=== PATIENT | male | born 1945 | race Caucasian/White ===

== ENCOUNTER → 2016-04-22 | Outpatient (CLI) | payer MEDICARE ==
[~2016-04-22] MED LIST: /AUGM875TA OR; /ONDA4TA SL; ASPI81TA83 OR; ATEN50TA2 OR; COLA100C2 OR; LISI40TA OR; MILKSUS OR; MULTIVIT PO; NITR0.4S SL; PLAV75TA2 OR; VICO5TAB OR; VIT D 2000 PO
[2016-04-22 09:53] LABS: ALBUMIN 3.9 GM/DL (3.2-5.2); ALKALINE PHOSPHATASE 63 U/L (45-117); ALT/SGPT 33 U/L (12-78); ANION GAP 10 MEQ/L (8-16); AST/SGOT 21 U/L (15-37); BILIRUBIN,TOTAL 0.6 MG/DL (0.2-1.0); BLOOD UREA NITROGEN 21 MG/DL (7-18); CALCIUM LEVEL 9.1 MG/DL (8.8-10.2); CARBON DIOXIDE LEVEL 31 MEQ/L (21-32); CHLORIDE LEVEL 100 MEQ/L (98-107); CHOLESTEROL LEVEL 108 MG/DL (<200); CREATININE FOR GFR 1.18 MG/DL (0.70-1.30); GLOMERULAR FILTRATION RATE > 60.0 (>49); GLUCOSE, FASTING 181 MG/DL (80-110); POTASSIUM SERUM 4.2 MEQ/L (3.5-5.1); SODIUM LEVEL 141 MEQ/L (136-145); TOTAL PROTEIN 6.9 GM/DL (6.4-8.2); TRIGLYCERIDES LEVEL 131 MG/DL (<150)
== END ==
LOC: M WUC 08:12
PROVIDERS: ATTEND Emergency Medicine
DX: E11.9 Type 2 diabetes mellitus without complications (principal); I10 Essential (primary) hypertension; E78.2 Mixed hyperlipidemia

== ENCOUNTER → 2016-11-06 | Outpatient (CLI) | payer MEDICARE ==
[2016-11-06 09:50] LABS: ALBUMIN/GLOBULIN RATIO 1.29 (1.00-1.93); ALKALINE PHOSPHATASE 65 U/L (45-117); ALT/SGPT 39 U/L (12-78); ANION GAP 11 MEQ/L (8-16); AST/SGOT 19 U/L (15-37); BILIRUBIN,TOTAL 0.6 MG/DL (0.2-1.0); BLOOD UREA NITROGEN 16 MG/DL (7-18); CARBON DIOXIDE LEVEL 28 MEQ/L (21-32); CHLORIDE LEVEL 102 MEQ/L (98-107); CHOLESTEROL LEVEL 179 MG/DL (<200); CREATININE FOR GFR 0.88 MG/DL (0.70-1.30); GLOMERULAR FILTRATION RATE > 60.0 (>49); GLUCOSE, FASTING 207 MG/DL (80-110); POTASSIUM SERUM 3.9 MEQ/L (3.5-5.1); SODIUM LEVEL 141 MEQ/L (136-145); TOTAL PROTEIN 7.1 GM/DL (6.4-8.2); TRIGLYCERIDES LEVEL 198 MG/DL (<150)
== END ==
LOC: M WUC 08:02
PROVIDERS: ATTEND Emergency Medicine
DX: E11.9 Type 2 diabetes mellitus without complications (principal); I10 Essential (primary) hypertension; E78.2 Mixed hyperlipidemia

== ENCOUNTER → 2017-07-07 | Outpatient (CLI) | payer MEDICARE ==
[2017-07-07 12:58] LABS: ESTIMATED AVERAGE GLUCOSE 183 MG/DL (60-110)
[2017-07-07 13:01] LABS: ALBUMIN 3.8 GM/DL (3.2-5.2); ALBUMIN/GLOBULIN RATIO 1.23 (1.00-1.93); ALKALINE PHOSPHATASE 61 U/L (45-117); ALT/SGPT 32 U/L (12-78); ANION GAP 5 MEQ/L (8-16); AST/SGOT 17 U/L (7-37); BILIRUBIN,TOTAL 0.6 MG/DL (0.2-1.0); BLOOD UREA NITROGEN 17 MG/DL (7-18); CALCIUM LEVEL 8.7 MG/DL (8.8-10.2); CARBON DIOXIDE LEVEL 30 MEQ/L (21-32); CHLORIDE LEVEL 106 MEQ/L (98-107); CHOLESTEROL LEVEL 119 MG/DL (<200); CHOLESTEROL RISK RATIO 2.586 (<5); CREATININE FOR GFR 0.99 MG/DL (0.70-1.30); GLOMERULAR FILTRATION RATE > 60.0 (>49); GLUCOSE, FASTING 169 MG/DL (70-100); HDL CHOLESTEROL 46 MG/DL (>40); LDL CHOLESTEROL 47.8 MG/DL (<100); NON-HDL-C 73 MG/DL; SODIUM LEVEL 141 MEQ/L (136-145); TOTAL PROTEIN 6.9 GM/DL (6.4-8.2); TRIGLYCERIDES LEVEL 126 MG/DL (<150)
[2017-07-07 13:11] LABS: MALB URINE SIEMENS 20.5 MG/L; MAU/CREAT RATIO 8.1 MCG/MG (0.0-30.0)
== END ==
LOC: M WUC 08:27
DX: E11.9 Type 2 diabetes mellitus without complications (principal); I10 Essential (primary) hypertension; E78.2 Mixed hyperlipidemia
CPT/HCPCS: 80053

== ENCOUNTER → 2017-11-01 | Outpatient (CLI) | payer MEDICARE ==
[2017-11-01 09:42] LABS: ALBUMIN 4.1 GM/DL (3.2-5.2); ALBUMIN/GLOBULIN RATIO 1.46 (1.00-1.93); ALKALINE PHOSPHATASE 55 U/L (45-117); ALT/SGPT 25 U/L (12-78); ANION GAP 11 MEQ/L (8-16); AST/SGOT 14 U/L (7-37); BILIRUBIN,TOTAL 0.5 MG/DL (0.2-1.0); BLOOD UREA NITROGEN 18 MG/DL (7-18); CARBON DIOXIDE LEVEL 27 MEQ/L (21-32); CHLORIDE LEVEL 107 MEQ/L (98-107); CHOLESTEROL LEVEL 114 MG/DL (<200); CHOLESTEROL RISK RATIO 2.192 (<5); CREATININE FOR GFR 0.89 MG/DL (0.70-1.30); ESTIMATED AVERAGE GLUCOSE 160 MG/DL (60-110); GLOMERULAR FILTRATION RATE > 60.0 (>42); GLUCOSE, FASTING 140 MG/DL (70-100); HDL CHOLESTEROL 52 MG/DL (>40); HEMOGLOBIN A1c 7.2 %; LDL CHOLESTEROL 42 MG/DL (<100); NON-HDL-C 62 MG/DL; POTASSIUM SERUM 3.8 MEQ/L (3.5-5.1); SODIUM LEVEL 145 MEQ/L (136-145); TOTAL PROTEIN 6.9 GM/DL (6.4-8.2); TRIGLYCERIDES LEVEL 98 MG/DL (<150)
== END ==
LOC: M WUC 08:09
DX: E78.2 Mixed hyperlipidemia (principal); E11.65 Type 2 diabetes mellitus with hyperglycemia
CPT/HCPCS: 80053

== ENCOUNTER → 2018-05-12 | Outpatient (CLI) | payer MEDICARE ==
[2018-05-12 09:51] LABS: HEMOGLOBIN A1c 8.6 %
[2018-05-12 09:59] LABS: BLOOD UREA NITROGEN 17 MG/DL (7-18); CALCIUM LEVEL 9.4 MG/DL (8.8-10.2); CARBON DIOXIDE LEVEL 31 MEQ/L (21-32); CHLORIDE LEVEL 101 MEQ/L (98-107); CREATININE FOR GFR 0.92 MG/DL (0.70-1.30); GLOMERULAR FILTRATION RATE > 60.0 (>42); GLUCOSE, FASTING 215 MG/DL (70-100); POTASSIUM SERUM 4.2 MEQ/L (3.5-5.1); SODIUM LEVEL 139 MEQ/L (136-145)
[2018-05-12 10:14] LABS: MALB URINE SIEMENS 56.1 MG/L; MAU/CREAT RATIO 19.8 MCG/MG (0.0-30.0)
== END ==
LOC: M WUC 08:11
PROVIDERS: ATTEND Physician Assistant Medical
DX: E11.65 Type 2 diabetes mellitus with hyperglycemia (principal); I10 Essential (primary) hypertension; E78.2 Mixed hyperlipidemia

== ENCOUNTER → 2018-09-20 | Outpatient (CLI) | payer MEDICARE ==
[~2018-09-20] MED LIST changes: -/ONDA4TA SL; +AMLO10TA5; +ATOR1TAB21; +GINK1CAP PO; +GLIM2TAB29; +LISI20TA19; +MELA5CAP2 PO; +METF10004; +METO1TAB7; +NAPR-885; +ONDA-1 SL
[2018-09-20 09:41] LABS: ALBUMIN 3.7 GM/DL (3.2-5.2); ALT/SGPT 31 U/L (12-78); BILIRUBIN,TOTAL 0.4 MG/DL (0.2-1.0); BLOOD UREA NITROGEN 12 MG/DL (7-18); CALCIUM LEVEL 8.8 MG/DL (8.8-10.2); CARBON DIOXIDE LEVEL 29 MEQ/L (21-32); CHLORIDE LEVEL 105 MEQ/L (98-107); CHOLESTEROL LEVEL 169 MG/DL (<200); CREATININE FOR GFR 0.97 MG/DL (0.70-1.30); GLOMERULAR FILTRATION RATE > 60.0 (>42); GLUCOSE, FASTING 160 MG/DL (70-100); HDL CHOLESTEROL 44 MG/DL (>40); LDL CHOLESTEROL 102 MG/DL (<100); NON-HDL-C 125 MG/DL; POTASSIUM SERUM 3.9 MEQ/L (3.5-5.1); SODIUM LEVEL 140 MEQ/L (136-145); TOTAL PROTEIN 6.6 GM/DL (6.4-8.2); TRIGLYCERIDES LEVEL 117 MG/DL (<150)
[2018-09-20 09:57] LABS: HEMOGLOBIN A1c 9.2 %
== END ==
LOC: M WUC 08:08
PROVIDERS: ATTEND Physician Assistant Medical
DX: E11.65 Type 2 diabetes mellitus with hyperglycemia (principal)

== ENCOUNTER → 2018-12-21 | Outpatient (CLI) | payer MEDICARE ==
[~2018-12-21] MED LIST changes: -AMLO10TA5; -ATOR1TAB21; -GINK1CAP PO; -GLIM2TAB29; -LISI20TA19; -MELA5CAP2 PO; -METF10004; -METO1TAB7; -NAPR-885
[2018-12-21 12:58] LABS: BLOOD UREA NITROGEN 18 MG/DL (7-18); CALCIUM LEVEL 9.3 MG/DL (8.8-10.2); CARBON DIOXIDE LEVEL 27 MEQ/L (21-32); CHLORIDE LEVEL 105 MEQ/L (98-107); CREATININE FOR GFR 1.04 MG/DL (0.70-1.30); GLOMERULAR FILTRATION RATE > 60.0 (>42); GLUCOSE, FASTING 178 MG/DL (70-100); POTASSIUM SERUM 4.4 MEQ/L (3.5-5.1); SODIUM LEVEL 138 MEQ/L (136-145)
[2018-12-21 13:20] LABS: MALB URINE SIEMENS 28.2 MG/L; MAU/CREAT RATIO 11.1 MCG/MG (0.0-30.0)
[2018-12-21 13:38] LABS: HEMOGLOBIN A1c 7.5 %
== END ==
LOC: M WUC 08:37
PROVIDERS: ATTEND Physician Assistant Medical
DX: E11.65 Type 2 diabetes mellitus with hyperglycemia (principal)

== ENCOUNTER 2019-02-27 17:31 | Emergency (ER) | payer MEDICARE ==
[~2019-02-27] VITALS: Ht 170.2 cm; Wt 109.6 kg
[2019-02-27] MEDS ORDERED: ATOR1TAB21 (19:09)
[2019-02-27] MEDS ORDERED: GINK1CAP PO (19:09)
[2019-02-27] MEDS ORDERED: GLIM2TAB29 (19:09)
[2019-02-27] MEDS ORDERED: MELA5CAP2 PO (19:09)
[2019-02-27] MEDS ORDERED: LISI20TA19 (19:09)
[2019-02-27] MEDS ORDERED: NAPR-885 (19:09)
[2019-02-27] MEDS ORDERED: METO1TAB7 (19:09)
[2019-02-27] MEDS ORDERED: AMLO10TA5 (19:09)
[2019-02-27] MEDS ORDERED: METF10004 (19:09)
[2019-02-27 19:38] LABS: BASO % 0.1 % (0.0-1.0); HEMATOCRIT 45.5 % (42.0-52.0); HEMOGLOBIN 15.5 g/dl (13.5-17.5); LYMPH # 0.7 10^3/uL (1.5-5.0); LYMPH % 8.6 % (24.0-44.0); MEAN CORPUSCULAR HEMOGLOBIN 29.9 pg (27.0-33.0); MEAN CORPUSCULAR HGB CONC 34.1 g/dl (32.0-36.5); MEAN CORPUSCULAR VOLUME 87.7 fl (80.0-96.0); MONO # 0.1 10^3/uL (0.0-0.8); MONO % 1.1 % (0.0-5.0); NEUTROPHILS # 7.7 10^3/uL (1.5-8.5); NEUTROPHILS % 89.8 % (36.0-66.0); PLATELET COUNT, AUTOMATED 278 10^3/uL (150-450); RED BLOOD COUNT 5.19 10^6/uL (4.30-6.10); WHITE BLOOD COUNT 8.6 10^3/uL (4.0-10.0)
[2019-02-27 19:42] LABS: APPEARANCE, URINE CLEAR (CLEAR); BACTERIA, URINE AUTO NEGATIVE (NEGATIVE); BILIRUBIN, URINE AUTO NEGATIVE (NEGATIVE); BLOOD, URINE BLOOD NEGATIVE (NEGATIVE); COLOR, URINE YELLOW (YELLOW); GLUCOSE, URINE (UA) AUTO 3+ mg/dL (NEGATIVE); KETONE, URINE AUTO TRACE mg/dL (NEGATIVE); LEUKOCYTE ESTERASE, URINE AUTO NEGATIVE (NEGATIVE); MUCUS, URINE SMALL (NEGATIVE); NITRITE, URINE AUTO NEGATIVE (NEGATIVE); PROTEIN, URINE AUTO NEGATIVE (NEGATIVE); RBC, URINE AUTO 2 /HPF (0-3); SPECIFIC GRAVITY URINE AUTO 1.027 (1.002-1.035); SQUAMOUS EPITHELIAL CELL UR AU 0 /HPF (0-6); UROBILINOGEN, URINE AUTO 0.2 mg/dL (0.0-2.0); WBC, URINE AUTO 0 /HPF (0-3)
--- NOTE | 2019-02-27 19:50 | REPVR ---
PROCEDURE INFORMATION: Exam: CT Head Without Contrast Exam date and time: 02/27/2019 7:07 PM Age: 73 years old Clinical indication: Altered mental status/memory loss; Additional info: Confusion, seeing people that are not there TECHNIQUE: Imaging protocol: Computed tomography of the head without contrast. Radiation optimization: All CT scans at this facility use at least one of these dose optimization techniques: automated exposure control; mA and/or kV adjustment per patient size (includes targeted exams where dose is matched to clinical indication); or iterative reconstruction. COMPARISON: No relevant prior studies available. FINDINGS: Brain: Decreased attenuation of the supratentorial white matter is likely secondary to chronic microvascular ischemia. No acute intracranial hemorrhage. Ventricles: Ventricular and subarachnoid spaces are age appropriate. Bones/joints: Unremarkable. No acute fracture. Sinuses: Visualized sinuses are unremarkable. No fluid levels. Mastoid air cells: Visualized mastoid air cells are well aerated. Soft tissues: Unremarkable. Vasculature: Intracranial vascular calcification. IMPRESSION: No acute intracranial abnormality. Electronically signed by: Shashank Handley On 02/27/2019 19:49:47 PM
[2019-02-27 20:07] LABS: ALBUMIN 4.5 GM/DL (3.2-5.2); ALT/SGPT 31 U/L (12-78); BILIRUBIN,TOTAL 0.5 MG/DL (0.2-1.0); BLOOD UREA NITROGEN 20 MG/DL (7-18); CARBON DIOXIDE LEVEL 27 MEQ/L (21-32); CHLORIDE LEVEL 101 MEQ/L (98-107); CREATININE FOR GFR 1.26 MG/DL (0.70-1.30); GLOMERULAR FILTRATION RATE > 60.0 (>42); GLUCOSE, FASTING 270 MG/DL (70-100); POTASSIUM SERUM 3.8 MEQ/L (3.5-5.1); SODIUM LEVEL 138 MEQ/L (136-145); TOTAL PROTEIN 8.2 GM/DL (6.4-8.2)
[2019-02-27 20:16] VITALS: BP 167/77
== END 2019-02-27 20:37 | disposition home or self-care (01) ==
LOC: M ED 17:31
DX: R44.3 Hallucinations, unspecified (principal); R41.0 Disorientation, unspecified; E11.9 Type 2 diabetes mellitus without complications; I10 Essential (primary) hypertension; G47.30 Sleep apnea, unspecified; Z91.041 Radiographic dye allergy status; Z79.1 Long term (current) use of non-steroidal anti-inflammatories (NSAID); Z79.82 Long term (current) use of aspirin; Z79.84 Long term (current) use of oral hypoglycemic drugs; Z79.899 Other long term (current) drug therapy

== ENCOUNTER → 2019-07-30 | Outpatient (CLI) | payer MEDICARE ==
[~2019-07-30] MED LIST changes: +AMLO10TA5; +ATOR1TAB21; +GINK1CAP PO; +GLIM2TAB29; +LISI20TA19; +MELA5CAP2 PO; +METF10004; +METO1TAB7; +NAPR-885
[2019-07-31 10:51] LABS: HEMOGLOBIN A1c 8.8 %
[2019-07-31 10:53] LABS: ALBUMIN 3.8 GM/DL (3.2-5.2); ALT/SGPT 36 U/L (12-78); BILIRUBIN,TOTAL 0.6 MG/DL (0.2-1.0); BLOOD UREA NITROGEN 16 MG/DL (7-18); CALCIUM LEVEL 9.5 MG/DL (8.8-10.2); CARBON DIOXIDE LEVEL 30 MEQ/L (21-32); CHLORIDE LEVEL 105 MEQ/L (98-107); CHOLESTEROL LEVEL 135 MG/DL (<200); CHOLESTEROL RISK RATIO 3.552 (<5); CREATININE FOR GFR 1.02 MG/DL (0.70-1.30); GLOMERULAR FILTRATION RATE > 60.0 (>42); GLUCOSE, FASTING 166 MG/DL (70-100); HDL CHOLESTEROL 38 MG/DL (>40); LDL CHOLESTEROL 59 MG/DL (<100); NON-HDL-C 97 MG/DL; POTASSIUM SERUM 4.4 MEQ/L (3.5-5.1); SODIUM LEVEL 143 MEQ/L (136-145); TOTAL PROTEIN 6.6 GM/DL (6.4-8.2); TRIGLYCERIDES LEVEL 189 MG/DL (<150)
== END ==
LOC: M WUC 08:18
PROVIDERS: ATTEND Physician Assistant
DX: E11.65 Type 2 diabetes mellitus with hyperglycemia (principal); E78.2 Mixed hyperlipidemia

== ENCOUNTER → 2019-10-29 | Outpatient (CLI) | payer MEDICARE ==
[~2019-10-29] MED LIST changes: -AMLO10TA5; +AMLO1TAB25; -LISI20TA19; +LISI20TA35
[2019-10-29 18:22] LABS: ALBUMIN 3.7 GM/DL (3.2-5.2); ALT/SGPT 27 U/L (12-78); BILIRUBIN,TOTAL 0.6 MG/DL (0.2-1.0); BLOOD UREA NITROGEN 13 MG/DL (7-18); CARBON DIOXIDE LEVEL 30 MEQ/L (21-32); CHLORIDE LEVEL 105 MEQ/L (98-107); CREATININE FOR GFR 0.98 MG/DL (0.70-1.30); GLOMERULAR FILTRATION RATE > 60.0 (>42); GLUCOSE, FASTING 141 MG/DL (70-100); POTASSIUM SERUM 3.8 MEQ/L (3.5-5.1); SODIUM LEVEL 141 MEQ/L (136-145); TOTAL PROTEIN 6.9 GM/DL (6.4-8.2)
[2019-10-29 18:34] LABS: HEMOGLOBIN A1c 7.1 %
[2019-10-29 18:56] LABS: MALB URINE SIEMENS 32.6 MG/L; MAU/CREAT RATIO 12.1 MCG/MG (0.0-30.0)
== END ==
LOC: M WUC 08:04
PROVIDERS: ATTEND Physician Assistant
DX: E11.65 Type 2 diabetes mellitus with hyperglycemia (principal)

== ENCOUNTER → 2020-02-26 | Outpatient (REF) | payer MEDICARE ==
[2020-02-26 15:48] LABS: HEMOGLOBIN A1c 6.9 %
== END ==
LOC: M WUC 15:05
PROVIDERS: ATTEND Physician Assistant Medical
DX: E11.65 Type 2 diabetes mellitus with hyperglycemia (principal)

== ENCOUNTER → 2022-03-03 | Outpatient (CLI) | payer MEDICARE ==
[2022-03-03 19:16] LABS: HEMOGLOBIN A1c 7.2 % (4.0-6.0)
== END ==
LOC: M WUC 11:42
PROVIDERS: ATTEND Nurse Practitioner Family
DX: E11.65 Type 2 diabetes mellitus with hyperglycemia (principal); Z79.84 Long term (current) use of oral hypoglycemic drugs

== ENCOUNTER 2023-02-19 10:57 | Inpatient (IN) | payer MEDICARE, MEDICAID ==
[~2023-02-19] VITALS: Ht 175.3 cm; Wt 86.6 kg
[~2023-02-19 10:57] MED LIST changes: -AMLO1TAB25; +AMLO1TAB25 PO; -LISI20TA35; +LISI20TA35 PO; -METF10004; +METF10004 PO; -METO1TAB7; +METO1TAB7 PO
[2023-02-19 14:41] LABS: VENOUS BASE EXCESS 2.2 (-2.0-2.0); VENOUS HCO3 26.6 MMOL/L (23.0-27.0); VENOUS O2 SATURATION 89.4 % (60.0-80.0); VENOUS PARTIAL PRESSURE CO2 40.5 mmHg (38.0-50.0); VENOUS PH 7.435 UNITS (7.330-7.430); VENOUS STANDARD HCO3 26.2 MMOL/L; VENOUS TOTAL CO2 27.8 MMOL/L (24.0-28.0)
[2023-02-19 14:50] LABS: BASO # 0.1 10^3/uL (0.0-0.2); BASO % 0.7 % (0.0-1.0); EOS # 0.1 10^3/uL (0.0-0.5); EOS % 0.9 % (0.0-3.0); HEMATOCRIT 41.3 % (42.0-52.0); HEMOGLOBIN 14.2 g/dl (13.5-17.5); LYMPH # 1.1 10^3/uL (1.5-5.0); LYMPH % 12.9 % (24.0-44.0); MEAN CORPUSCULAR HEMOGLOBIN 30.1 pg (27.0-33.0); MEAN CORPUSCULAR HGB CONC 34.4 g/dl (32.0-36.5); MEAN CORPUSCULAR VOLUME 87.7 fl (80.0-96.0); MONO # 0.8 10^3/uL (0.0-0.8); MONO % 9.5 % (2.0-8.0); NEUTROPHILS # 6.4 10^3/uL (1.5-8.5); NEUTROPHILS % 75.8 % (36.0-66.0); PLATELET COUNT, AUTOMATED 268 10^3/uL (150-450); RED BLOOD COUNT 4.71 10^6/uL (4.30-6.10); WHITE BLOOD COUNT 8.5 10^3/uL (4.0-10.0)
[2023-02-19 15:15] LABS: ALBUMIN 3.7 G/DL (3.2-5.2); ALKALINE PHOSPHATASE 79 U/L (46-116); ALT/SGPT 17 U/L (7.0-40); AST/SGOT 27 U/L (<34); BILIRUBIN,DIRECT 0.2 MG/DL (<0.4); BILIRUBIN,TOTAL 0.8 MG/DL (0.3-1.2); BLOOD UREA NITROGEN 18 MG/DL (9-23); CALCIUM LEVEL 9.2 MG/DL (8.3-10.6); CARBON DIOXIDE LEVEL 30 MMOL/L (20-31); CHLORIDE LEVEL 107 MMOL/L (98-107); CREATININE FOR GFR 0.72 MG/DL (0.70-1.30); GLOMERULAR FILTRATION RATE > 60.0 (>42); GLUCOSE, FASTING 121 MG/DL (74-106); SODIUM LEVEL 144 MMOL/L (136-145); TOTAL PROTEIN 6.4 G/DL (5.7-8.2)
[2023-02-19 15:18] LABS: THYROID STIMULATING HORMONE 2.485 uIU/ML (0.55-4.78)
[2023-02-19 15:27] LABS: OSMOLALITY SERUM 300 MOSM/KG (280-301)
[2023-02-19] MEDS ORDERED: GLUCAGON INJ 1MG VIAL SC PRN (17:25)
[2023-02-19] MEDS ORDERED: DEXTROSE 50% 50ML SYRINGE IV PRN (17:25)
[2023-02-19] MEDS ORDERED: GLUCOSE 4GM CHEW TABLET PO PRN (17:25)
[2023-02-19] MEDS: INSULIN LISPRO (NovoLOG) PER UNIT SC SCH ×2 (17:30→20:33)
[2023-02-19] MEDS ORDERED: MED REC IN PROGRESS XX SCH (18:05)
[2023-02-19] MEDS: BOOSTRIX VACCINE (TETANUS/DIPHTH/ACEL. PERTUSSIS) 0.5ML SYR IM.IMMUN ONE ×2 (18:18→18:19)
[2023-02-19] MEDS: LR 1,000 ML IV SCH (18:30)
[2023-02-19 18:49] LABS: PROCALCITONIN <0.04 ng/ml
[2023-02-19] MEDS ORDERED: QUET50TA4 PO (18:58)
[2023-02-19] MEDS ORDERED: SERT25TA21 PO (18:58)
[2023-02-19] MEDS ORDERED: RIVA1CAP3 PO (18:58)
[2023-02-19] MEDS ORDERED: HOME MED LIST COMPLETE! XX SCH (19:00)
[2023-02-19 20:06] VITALS: BP 149/88; TEMP 97.2; O2SAT 95
[2023-02-19] MEDS: OLANZapine INTRAMUSCULAR 10MG VIAL IM SCH (21:34)
[2023-02-20 05:54] LABS: HEMATOCRIT 38.8 % (42.0-52.0); HEMOGLOBIN 13.6 g/dl (13.5-17.5); MEAN CORPUSCULAR HEMOGLOBIN 30.6 pg (27.0-33.0); MEAN CORPUSCULAR HGB CONC 35.1 g/dl (32.0-36.5); MEAN CORPUSCULAR VOLUME 87.2 fl (80.0-96.0); PLATELET COUNT, AUTOMATED 263 10^3/uL (150-450); RED BLOOD COUNT 4.45 10^6/uL (4.30-6.10); WHITE BLOOD COUNT 8.1 10^3/uL (4.0-10.0)
[2023-02-20 06:00] VITALS: BP 132/89; TEMP 98.2; O2SAT 90
[2023-02-20 06:25] LABS: BLOOD UREA NITROGEN 18 MG/DL (9-23); CALCIUM LEVEL 9.1 MG/DL (8.3-10.6); CARBON DIOXIDE LEVEL 30 MMOL/L (20-31); CHLORIDE LEVEL 108 MMOL/L (98-107); CREATININE FOR GFR 0.77 MG/DL (0.70-1.30); GLOMERULAR FILTRATION RATE > 60.0 (>42); GLUCOSE, FASTING 122 MG/DL (74-106); POTASSIUM SERUM 3.8 MMOL/L (3.5-5.1); SODIUM LEVEL 143 MMOL/L (136-145)
[2023-02-20] MEDS ORDERED: PILL CUTTER 1 EACH XX PRN (09:50)
[2023-02-20] MEDS: INSULIN LISPRO (NovoLOG) PER UNIT SC SCH ×4 (10:12→21:00)
[2023-02-20] MEDS: OLANZapine INTRAMUSCULAR 10MG VIAL IM SCH ×2 (11:09→22:02)
[2023-02-20] MEDS: ENOXAPARIN 40MG/0.4ML SYRINGE (J1650 PER 10MG) SC SCH (11:10)
[2023-02-20] MEDS: METOPROLOL SUCC (TopROL XL) 50MG **XL** TAB PO SCH (11:10)
[2023-02-20] MEDS: LR 1,000 ML IV SCH (11:10)
[2023-02-20] MEDS: SERTRALINE HCL 25 MG TABLET PO SCH (11:11)
[2023-02-20 14:00] VITALS: BP 117/80; TEMP 98.1; O2SAT 96
[2023-02-20] MEDS ORDERED: LORazepam 0.5 MG TAB PO PRN (14:05)
[2023-02-20] MEDS ORDERED: LORazepam 2 MG/ML 1ML VIAL IV ONE (14:45)
[2023-02-20] MEDS ORDERED: QUEtiapine FUMARATE 50MG TAB PO SCH (21:00)
[2023-02-20] MEDS: LORazepam 2 MG/ML 1ML VIAL IV SCH (21:00)
[2023-02-20] MEDS ORDERED: LORazepam 2 MG/ML 1ML VIAL IM SCH (21:00)
[2023-02-20 22:00] VITALS: BP 152/84; TEMP 98.1; O2SAT 95
[2023-02-21] MEDS: LR 1,000 ML IV SCH ×2 (00:31→12:42)
[2023-02-21 06:00] VITALS: BP 166/83; TEMP 98.6; O2SAT 95
[2023-02-21] MEDS: INSULIN LISPRO (NovoLOG) PER UNIT SC SCH ×4 (07:30→21:00)
[2023-02-21] MEDS: OLANZapine INTRAMUSCULAR 10MG VIAL IM SCH ×2 (09:00→21:00)
[2023-02-21] MEDS: ENOXAPARIN 40MG/0.4ML SYRINGE (J1650 PER 10MG) SC SCH (09:25)
[2023-02-21] MEDS: SERTRALINE HCL 25 MG TABLET PO SCH (09:25)
[2023-02-21] MEDS: METOPROLOL SUCC (TopROL XL) 50MG **XL** TAB PO SCH (09:25)
[2023-02-21 14:00] VITALS: BP 128/72; TEMP 98.1; O2SAT 95
[2023-02-21 20:00] VITALS: BP 154/97; TEMP 98.1; O2SAT 95
[2023-02-21] MEDS: LORazepam 2 MG/ML 1ML VIAL IV SCH (21:00)
[2023-02-22] MEDS: LR 1,000 ML IV SCH ×2 (02:11→13:10)
[2023-02-22 06:00] VITALS: BP 186/100; TEMP 98.1; O2SAT 95
[2023-02-22 06:18] LABS: HEMATOCRIT 38.1 % (42.0-52.0); HEMOGLOBIN 13.2 g/dl (13.5-17.5); MEAN CORPUSCULAR HEMOGLOBIN 30.5 pg (27.0-33.0); MEAN CORPUSCULAR HGB CONC 34.6 g/dl (32.0-36.5); PLATELET COUNT, AUTOMATED 260 10^3/uL (150-450); RED BLOOD COUNT 4.33 10^6/uL (4.30-6.10); WHITE BLOOD COUNT 7.5 10^3/uL (4.0-10.0)
[2023-02-22] MEDS: INSULIN LISPRO (NovoLOG) PER UNIT SC SCH ×4 (07:30→20:59)
[2023-02-22 08:04] VITALS: BP 177/98
[2023-02-22] MEDS: ENOXAPARIN 40MG/0.4ML SYRINGE (J1650 PER 10MG) SC SCH (08:04)
[2023-02-22] MEDS: METOPROLOL SUCC (TopROL XL) 50MG **XL** TAB PO SCH (08:04)
[2023-02-22] MEDS ORDERED: ACETAMINOPHEN TAB 650MG DOSE (2X325MG) PO PRN (08:40)
[2023-02-22] MEDS: OLANZapine INTRAMUSCULAR 10MG VIAL IM SCH (09:00)
[2023-02-22] MEDS: SERTRALINE HCL 25 MG TABLET PO SCH (09:04)
[2023-02-22 11:45] VITALS: BP 144/75
[2023-02-22] MEDS ORDERED: OLANZapine INTRAMUSCULAR 10MG VIAL IM PRN (12:00)
[2023-02-22 14:00] VITALS: BP 141/75; TEMP 97.7; O2SAT 97
[2023-02-22 20:00] VITALS: BP 156/103; TEMP 98.1; O2SAT 91
[2023-02-22] MEDS ORDERED: MOM 30ML SUSPENSION UDC PO PRN (20:20)
[2023-02-22] MEDS: RIVASTIGMINE 3 MG XX SCH (20:58)
[2023-02-22] MEDS: DOCUSATE SODIUM 100MG CAPSULE PO SCH (20:58)
[2023-02-22] MEDS: LORazepam 2 MG/ML 1ML VIAL IV SCH (20:59)
[2023-02-22] MEDS ORDERED: BISACODYL 10MG SUPP PR PRN (21:55)
[2023-02-22] MEDS ORDERED: BISACODYL 10MG SUPP PR ONE (23:00)
[2023-02-23] MEDS: LR 1,000 ML IV SCH ×2 (01:50→15:17)
[2023-02-23 06:00] VITALS: BP 158/88; TEMP 97.9; O2SAT 90
[2023-02-23] MEDS ORDERED: METOPROLOL TART 25 MG TABLET PO SCH (09:00)
[2023-02-23] MEDS ORDERED: BISACODYL 10MG SUPP PR PRN (09:00)
[2023-02-23] MEDS: INSULIN LISPRO (NovoLOG) PER UNIT SC SCH ×2 (09:13→12:00)
[2023-02-23] MEDS: ENOXAPARIN 40MG/0.4ML SYRINGE (J1650 PER 10MG) SC SCH (09:13)
[2023-02-23] MEDS: SERTRALINE HCL 25 MG TABLET PO SCH (09:14)
[2023-02-23] MEDS: DOCUSATE SODIUM 100MG CAPSULE PO SCH ×2 (09:14→21:00)
[2023-02-23] MEDS: RIVASTIGMINE 3 MG XX SCH (09:14)
[2023-02-23 14:00] VITALS: BP 142/74; TEMP 98.1; O2SAT 98
[2023-02-23] MEDS ORDERED: MORPHINE 2 MG/ML 1ML VIAL IV PRN (15:55)
[2023-02-23] MEDS ORDERED: ONDANSETRON 4MG ORAL DISINTEGRATING TAB PO PRN (15:55)
[2023-02-23] MEDS ORDERED: ACETAMINOPHEN 650MG SUPP PR PRN (15:55)
[2023-02-23] MEDS ORDERED: ONDANSETRON 4MG 2ML VIAL IV PRN (15:55)
[2023-02-23] MEDS ORDERED: ACETAMINOPHEN TAB 650MG DOSE (2X325MG) PO PRN (15:55)
[2023-02-23] MEDS ORDERED: HYOSCYAMINE SULFATE 0.125 MG SUBL TABLET PO PRN (15:55)
[2023-02-23] MEDS ORDERED: ATROPINE SULFATE 1% OPHTH SOLN 2ML BTL SL PRN (15:55)
[2023-02-23] MEDS ORDERED: LORazepam 2 MG/ML 1ML VIAL IV PRN (15:55)
[2023-02-23] MEDS ORDERED: SCOPOLAMINE 1MG TRANSDERMAL PATCH TOP PRN (15:55)
[2023-02-23] MEDS ORDERED: ERYTHROMYCIN OPHTH OINT OD SCH (17:00)
[2023-02-23] MEDS: MORPHINE 10MG/0.5ML ORAL CONCENTRATE SOLUTION U/D SL PRN (23:43)
[2023-02-23] MEDS: LORazepam 1 MG TAB PO PRN (23:44)
[2023-02-24] MEDS: DOCUSATE SODIUM 100MG CAPSULE PO SCH ×2 (07:35→21:00)
[2023-02-24] MEDS: ERYTHROMYCIN OPHTH OINT OD SCH ×4 (08:55→21:00)
[2023-02-24] MEDS ORDERED: ERYTHROMYCIN 2 % GEL 30GM TOP SCH (09:00)
[2023-02-24] MEDS: LORazepam 1 MG TAB PO PRN (20:58)
[2023-02-24] MEDS: MORPHINE 10MG/0.5ML ORAL CONCENTRATE SOLUTION U/D SL PRN (20:59)
[2023-02-25] MEDS: ERYTHROMYCIN OPHTH OINT OD SCH ×6 (01:58→20:30)
[2023-02-25] MEDS: DOCUSATE SODIUM 100MG CAPSULE PO SCH ×2 (07:28→20:30)
[2023-02-25] MEDS: LORazepam 1 MG TAB PO PRN (18:52)
[2023-02-25] MEDS: MORPHINE 10MG/0.5ML ORAL CONCENTRATE SOLUTION U/D SL PRN (18:53)
[2023-02-26] MEDS: ERYTHROMYCIN OPHTH OINT OD SCH ×6 (00:34→21:05)
[2023-02-26] MEDS: DOCUSATE SOD LIQ 100MG/10ML UDC PO SCH ×2 (09:00→21:05)
[2023-02-27] MEDS: ERYTHROMYCIN OPHTH OINT OD SCH ×6 (01:32→20:23)
[2023-02-27] MEDS: DOCUSATE SOD LIQ 100MG/10ML UDC PO SCH ×2 (09:00→20:22)
[2023-02-27] MEDS ORDERED: SALIVA SUBSTITUTE(MOUTHKOTE) BTL MT PRN (18:15)
[2023-02-27] MEDS: LORazepam 1 MG TAB PO PRN (18:36)
[2023-02-28] MEDS: ERYTHROMYCIN OPHTH OINT OD SCH ×6 (00:50→20:45)
[2023-02-28] MEDS: DOCUSATE SOD LIQ 100MG/10ML UDC PO SCH ×2 (09:00→20:45)
[2023-02-28] MEDS ORDERED: ATIV1TAB10 PO (12:42)
[2023-02-28] MEDS ORDERED: HYOS125TA PO (12:42)
[2023-02-28] MEDS ORDERED: MORP1SOL5 PO (12:42)
[2023-03-01] MEDS: ERYTHROMYCIN OPHTH OINT OD SCH ×3 (01:11→08:17)
[2023-03-01] MEDS: DOCUSATE SOD LIQ 100MG/10ML UDC PO SCH (08:35)
== END 2023-03-01 11:15 | disposition hospice, inpatient (51) | DRG 57 ==
LOC: M ED 10:57 → EDBD 10:57 → M ED INP 10:58 → OBSVTOIN 18:11 → M MSPAV 20:10
PROVIDERS: ADMIT Internal Medicine; ATTEND Internal Medicine
DX: G31.83 Neurocognitive disorder with Lewy bodies (principal); G93.40 Encephalopathy, unspecified; F02.80 Dementia in other diseases classified elsewhere, unspecified severity, without behavioral disturbance, psychotic disturbance, mood disturbance, and anxiety; E11.9 Type 2 diabetes mellitus without complications; E78.5 Hyperlipidemia, unspecified; G47.52 REM sleep behavior disorder; I10 Essential (primary) hypertension; Z66 Do not resuscitate; Z79.82 Long term (current) use of aspirin; Z88.3 Allergy status to other anti-infective agents; Z20.822 Contact with and (suspected) exposure to COVID-19; Z79.899 Other long term (current) drug therapy; R33.9 Retention of urine, unspecified; K59.00 Constipation, unspecified